=== PATIENT | male | born 1970 | race Caucasian/White ===

== ENCOUNTER 2017-03-03 21:16 | Observation (INO) | payer OTHER ==
[2017-03-03] MEDS ORDERED: NS 0.9% 1000 ML* 1,000 ML IV ONE (22:39)
[2017-03-03 23:28] LABS: Hematocrit 44 % (42-52); Hemoglobin 14.9 g/dl (14.0-18.0); Mean Corpuscular HGB Conc 34 g/dl (31-36); Mean Corpuscular Hemoglobin 34 pg (27-31); Mean Corpuscular Volume 101 fL (80-94); Mean Platelet Volume 7 um3 (7.4-10.4); Red Blood Count 4.37 10^6/ul (4.0-5.4); Red Cell Distribution Width 13 % (10.5-15)
[2017-03-03 23:44] LABS: ALT 32 U/L (7-52); AST 15 U/L (13-39); Albumin 4.3 g/dL (3.2-5.2); Alkaline Phosphatase 20 U/L (34-104); Anion Gap 10 mmol/L (2-11); BUN/Creatinine Ratio 17.7 (8-20); Blood Urea Nitrogen 17 mg/dL (6-24); C Reactive Protein 13.37 mg/L (< 5.00); CO2 Carbon Dioxide 24 mmol/L (22-32); Calcium 9.8 mg/dL (8.6-10.3); Chloride 100 mmol/L (101-111); EGFR African American 107.1 (>60); EGFR Non-African American 83.3 (>60); Globulin 2.2 g/dL (2-4); Glucose 130 mg/dL (70-100); Lipase < 10 U/L (11.0-82.0); Magnesium 1.8 mg/dL (1.9-2.7); Potassium 3.8 mmol/L (3.5-5.0); Sodium 134 mmol/L (133-145); Total Protein 6.5 g/dL (6.4-8.9)
[2017-03-03] MEDS ORDERED: Iohexol 300* (CONTRAST) 10 ML SDV IV ONE (23:54)
[2017-03-04 01:15] LABS: Urine Bilirubin Negative (Negative); Urine Glucose Negative (Negative); Urine Nitrite Negative (Negative)
--- NOTE | 2017-03-04 02:07 | ED ---
Shanda Post Salem, scribed for Titus Martinez MD on 03/03/17 at 2259 . Abdominal Pain/Male - HPI Summary HPI Summary: Patient is a 47 y/o M who presents to the ED with right-sided abdominal pain since 0. He states that pain radiates into right flank. Pt reports nausea and intermittent chills throughout the day. He also reports taking Ibuprofen and ASA for symptoms with little alleviation. He denies a hx of similar sx. - History of Current Complaint Chief Complaint: EDAbdPain Stated Complaint: ABD PAIN Time Seen by Provider: 03/03/17 22:35 Hx Obtained From: Patient, Family/Traffic Worker Onset/Duration: Gradual Onset, Lasting Hours, Still Present Timing: Constant, Lasting Days Severity Initially: Moderate Severity Currently: Moderate Pain Intensity: 8 Pain Scale Used: 0-10 Numeric Location: Discrete At: RUQ, Discrete At: RLQ Radiates: Yes Radiates to: Flank - Right. Aggravating Factor(s): Nothing Alleviating Factor(s): Nothing Associated Signs And Symptoms: Positive: Nausea, Other - Chills. - Allergies/Home Medications Allergies/Adverse Reactions: Allergies Allergy/AdvReac Type Severity Reaction Status Date / Time No Known Allergies Allergy Verified 03/03/17 21:21 PMH/Surg Hx/FS Hx/Imm Hx Previously Healthy: Yes - Surgical History Surgery Procedure, Year, and Place: None. Infectious Disease History: Denies: Traveled Outside the [place] in Last 30 Days - Family History Known Family History: Positive: Cardiac Disease, Respiratory Disease - COPD. - Social History Lives: With Family Review of Systems Positive: Chills Positive: Abdominal Pain, Nausea All Other Systems Reviewed And Are Negative: Yes Physical Exam Triage Information Reviewed: Yes Vital Signs On Initial Exam: Initial Vitals Temp Pulse Resp BP Pulse Ox 97.2 F 59 16 175/80 96 03/03/17 21:19 03/03/17 21:19 03/03/17 21:19 03/03/17 21:19 03/03/17 21:19 Vital Signs Reviewed: Yes Appearance: Positive: Well-Appearing, Pain Distress - moderate discomfort Skin: Positive: Warm Head/Face: Positive: Normal Head/Face Inspection Eyes: Positive: HIRO ENT: Positive: Hearing grossly normal Neck: Positive: Supple Respiratory/Lung Sounds: Positive: Breath Sounds Present Cardiovascular: Positive: Normal, RRR Abdomen Description: Positive: Soft, Guarding, McBurney's Point Tenderness Bowel Sounds: Positive: Present Musculoskeletal: Positive: Strength/ROM Intact Neurological: Positive: Alert, Oriented to Person Place, Time Diagnostics - Vital Signs Vital Signs Temp Pulse Resp BP Pulse Ox 03/03/17 21:19 97.2 F 59 16 175/80 96 - Laboratory Lab Results: Lab Results 03/03/17 03/03/17 03/03/17 Range/Units 23:19 23:19 23:19 WBC 19.0 H (3.5-10.8) 10^3/ul RBC 4.37 (4.0-5.4) 10^6/ul Hgb 14.9 (14.0-18.0) g/dl Hct 44 (42-52) % MCV 101 H (80-94) fL MCH 34 H (27-31) pg MCHC 34 (31-36) g/dl RDW 13 (10.5-15) % Plt Count 172 (150-450) 10^3/ul MPV 7 L (7.4-10.4) um3 Neut % (Auto) 90.6 H (38-83) % Lymph % (Auto) 4.4 L (25-47) % Potter % (Auto) 4.8 (1-9) % Eos % (Auto) 0 (0-6) % Baso % (Auto) 0.2 (0-2) % Absolute Neuts (auto) 17.2 H (1.5-7.7) 10^3/ul Absolute Lymphs (auto) 0.8 L (1.0-4.8) 10^3/ul Absolute Monos (auto) 0.9 H (0-0.8) 10^3/ul Absolute Eos (auto) 0 (0-0.6) 10^3/ul Absolute Basos (auto) 0 (0-0.2) 10^3/ul Absolute Nucleated RBC 0.02 10^3/ul Nucleated RBC % 0.1 Sodium 134 (133-145) mmol/L Potassium 3.8 (3.5-5.0) mmol/L Chloride 100 L (101-111) mmol/L Carbon Dioxide 24 (22-32) mmol/L Anion Gap 10 (2-11) mmol/L BUN 17 (6-24) mg/dL Creatinine 0.96 (0.67-1.17) mg/dL Est GFR ( Amer) 107.1 (>60) Est GFR (Non-Af Amer) 83.3 (>60) BUN/Creatinine Ratio 17.7 (8-20) Glucose 130 H (70-100) mg/dL Lactic Acid 3.0 H* (0.5-2.0) mmol/L Calcium 9.8 (8.6-10.3) mg/dL Magnesium 1.8 L (1.9-2.7) mg/dL Total Bilirubin 0.70 (0.2-1.0) mg/dL AST 15 (13-39) U/L ALT 32 (7-52) U/L Alkaline Phosphatase 20 L (34-104) U/L C-Reactive Protein 13.37 H (< 5.00) mg/L Total Protein 6.5 (6.4-8.9) g/dL Albumin 4.3 (3.2-5.2) g/dL Globulin 2.2 (2-4) g/dL Albumin/Globulin Ratio 2.0 (1-3) Lipase < 10 L (11.0-82.0) U/L Urine Color Urine Appearance Urine pH (5-9) Ur Specific [place] (1.010-1.030) Urine Protein (Negative) Urine Ketones (Negative) Urine Blood (Negative) Urine Nitrate (Negative) Urine Bilirubin (Negative) Urine Urobilinogen (Negative) Ur Leukocyte Esterase (Negative) Urine Glucose (Negative) 03/04/17 Range/Units 00:08 WBC (3.5-10.8) 10^3/ul RBC (4.0-5.4) 10^6/ul Hgb (14.0-18.0) g/dl Hct (42-52) % MCV (80-94) fL MCH (27-31) pg MCHC (31-36) g/dl RDW (10.5-15) % Plt Count (150-450) 10^3/ul MPV (7.4-10.4) um3 Neut % (Auto) (38-83) % Lymph % (Auto) (25-47) % Potter % (Auto) (1-9) % Eos % (Auto) (0-6) % Baso % (Auto) (0-2) % Absolute Neuts (auto) (1.5-7.7) 10^3/ul Absolute Lymphs (auto) (1.0-4.8) 10^3/ul Absolute Monos (auto) (0-0.8) 10^3/ul Absolute Eos (auto) (0-0.6) 10^3/ul Absolute Basos (auto) (0-0.2) 10^3/ul Absolute Nucleated RBC 10^3/ul Nucleated RBC % Sodium (133-145) mmol/L Potassium (3.5-5.0) mmol/L Chloride (101-111) mmol/L Carbon Dioxide (22-32) mmol/L Anion Gap (2-11) mmol/L BUN (6-24) mg/dL Creatinine (0.67-1.17) mg/dL Est GFR ( Amer) (>60) Est GFR (Non-Af Amer) (>60) BUN/Creatinine Ratio (8-20) Glucose (70-100) mg/dL Lactic Acid (0.5-2.0) mmol/L Calcium (8.6-10.3) mg/dL Magnesium (1.9-2.7) mg/dL Total Bilirubin (0.2-1.0) mg/dL AST (13-39) U/L ALT (7-52) U/L Alkaline Phosphatase (34-104) U/L C-Reactive Protein (< 5.00) mg/L Total Protein (6.4-8.9) g/dL Albumin (3.2-5.2) g/dL Globulin (2-4) g/dL Albumin/Globulin Ratio (1-3) Lipase (11.0-82.0) U/L Urine Color Yellow Urine Appearance Turbid Urine pH 5.0 (5-9) Ur Specific [place] 1.030 (1.010-1.030) Urine Protein Negative (Negative) Urine Ketones Negative (Negative) Urine Blood Negative (Negative) Urine Nitrate Negative (Negative) Urine Bilirubin Negative (Negative) Urine Urobilinogen Negative (Negative) Ur Leukocyte Esterase Negative (Negative) Urine Glucose Negative (Negative) Result Diagrams: 03/03/17 23:19 03/03/17 23:19 Diagnostic Studies Comment: Lactic acid: 3.0 Lab Statement: Any lab studies that have been ordered have been reviewed, and results considered in the medical decision making process. - CT Abd/pelvis CT Interpretation Completed By: Radiologist - Impression: Acute appendicitis. Abdominal Pain Fem Course/Dx - Course Course Of Treatment: 47 y/o M presents with right-sided abdominal pain that radiates into right flank since 0. He reports nausea and intermittent chills throughout the day. He also reports taking Ibuprofen and ASA for symptoms with little alleviation. Pt received fluids in ED course. CT shows, per radiology, Impression: Acute appendicitis. Discussed case with Dr. Love. Pt will be admitted. - Diagnoses Provider Diagnoses: Acute appendicitis - Provider Notifications Discussed Care Of Patient With: Asim Love Time Discussed With Above Provider: 01:33 Instructed by Provider To: Admit As Inpatient Admit/Transition Orders Completed By ED Provider: Yes Discharge - Discharge Plan Condition: Fair Disposition: ADMITTED TO [facility] The documentation as recorded by the Shanda valenzuela Salem accurately reflects the service I personally performed and the decisions made by me, Titus Martinez MD.
[2017-03-04] MEDS ORDERED: Metoclopramide IV* 5 MG/ML 2 ML VIAL IV PRN (04:16)
[2017-03-04] MEDS ORDERED: Zosyn per Pharmacy* NOTE FOLLOW UP PRN (04:17)
[2017-03-04] MEDS ORDERED: Morphine INJ* 2 MG/ML 1 ML SYRINGE IV PRN (04:18)
[2017-03-04] MEDS ORDERED: NS 0.9% 1000 ML* 1,000 ML IV SCH (04:30)
[2017-03-04] MEDS ORDERED: Zosyn 3.375 gm X 1 dose, then dose per Pharmacy IVPB ONE ×2 (05:00)
--- NOTE | 2017-03-04 08:03 | RAD ---
CLINICAL HISTORY: Lower abdominal pain COMPARISON: None TECHNIQUE: Multiple contiguous axial CT scans were obtained of the abdomen and pelvis after the administration of intravenous contrast. Coronal and sagittal multiplanar reformations are submitted for review. Oral contrast was administered. Delayed images were obtained through the abdomen and pelvis. FINDINGS: LUNG BASES: The lung bases are clear. LIVER: The liver is diffusely low in attenuation compared to the spleen. There are no focal hepatic parenchymal masses. BILE DUCTS: There is no intrahepatic or extrahepatic biliary dilatation. GALLBLADDER: The gallbladder is normal, without pericholecystic inflammatory change. PANCREAS: The pancreas is normal, without mass or ductal dilatation. SPLEEN: Normal in size and appearance. UPPER GI TRACT: Evaluation of the gastrointestinal tract is limited by incomplete gastric distention. The upper GI tract is unremarkable. SMALL BOWEL AND MESENTERY: The small bowel is normal in contour, course, and caliber. There is no obstruction or dilatation. Incidentally noted is a small enteroenteric intussusception best seen on axial image 81. This does not persist on delayed images and is likely an artifact of peristalsis. Similarly, there is a small area of intussusception that does not persist seen on axial image 96. COLON: There is a tubular, vermiform, hollow viscus that is blind-ending and originates from the cecum. This is dilated measuring up to 1 cm in caliber with stranding of the adjacent fat and a small amount of fluid tracking along the right lateroconal fascia. The appearance is consistent with acute appendicitis. There is no loculated fluid collection to suggest abscess. There is minimal mucosal thickening of the cecum at the base of the appendix, likely reactive. ADRENALS: Normal bilaterally. KIDNEYS: The kidneys are normal in shape, size, contour, and axis. There is no hydronephrosis or nephrolithiasis. BLADDER: The bladder is smooth in contour. PELVIC ORGANS: The prostate gland is normal. The seminal vesicles are symmetric. AORTA: The aorta is normal. IVC: Unremarkable LYMPH NODES: There is no lymphadenopathy by size criteria. ABDOMINAL WALL: There is no evidence for abdominal wall hernia. BONES AND SOFT TISSUES: There are mild diffuse degenerative changes. OTHER: None IMPRESSION: ACUTE APPENDICITIS, WITHOUT LOCULATED FLUID COLLECTION TO SUGGEST ABSCESS. FATTY LIVER.
[2017-03-04] MEDS ORDERED: ZOSYN 3.375 GM Q8H per EXTENDED INFUSION IVPB SCH ×2 (09:00)
--- NOTE | 2017-03-04 10:25 | HP ---
CC: Dr. Miguel Magana DATE OF ADMISSION: 03/04/2017. ATTENDING SURGEON: Dr. Titus Herrera (JUVENAL Hoover dictating). CHIEF COMPLAINT: Abdominal pain. HISTORY OF PRESENT ILLNESS: This is a 47-year-old, generally healthy male who first felt some upper abdominal discomfort the morning of 03/03/2017. He felt hungry, but also had some hot and cold sen sations. He was able to eat, but later in the day nausea was more prominent and he had a small amou nt of vomiting. He is not anorexic at the present time. Pain eventually moved to the right lower q uadrant where it has remained since and has increased in severity to the point where he is asking fo r pain medication. He has not had any previous similar episodes. His last bowel movement was here in the ED following the oral contrast. He states it was loose. There had been no blood per rectum. He has not had any suspect food ingestion and no sick contacts. No previous abdominal surgeries. PAST MEDICAL HISTORY: Unremarkable for any active or significant past medical problems. He specifi tamara denies history of cardiovascular disease, respiratory problems. PAST SURGICAL HISTORY: His only previous surgery is a vasectomy. CURRENT MEDICATIONS: None. DRUG ALLERGIES: None. FAMILY HISTORY: Negative for anesthesia problems, bleeding or clotting disorders. SOCIAL HISTORY: The patient is . He has four children. 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 He is a smoker of one-third pack per day for the past 35 years. He is encouraged to quit. He drinks between four and five drinks per week. He denies other recreational drug use. REVIEW OF SYSTEMS: General: No recent constitutional symptoms or acute illnesses, other than descr ibed in the HPI. His weight has been stable. Cardiovascular: No chest pain or palpitations, histo ry of hypertension or heart murmur. Respiratory: No history of chronic cough or shortness of breath . GI: As above per HPI. No lower GI symptoms. : No problems reported. No dysuria. Endocrine : No diabetes or thyroid dysfunction. PHYSICAL EXAMINATION GENERAL: Well-nourished, well-developed male in no acute distress. He appears mildly uncomfortable . SKIN: Warm and dry. No suspicious rashes or lesions. VITAL SIGNS: Height 5'10", weight 200 pounds. Other vital signs per nursing. HEENT: Pupils equal and round, reactive. EOM's intact. No conjunctival pallor or scleral icterus. Oropharynx: Teeth in good repair. No intraoral lesions. NECK: No lymphadenopathy, thyromegaly or masses. LUNGS: Clear to auscultation. No wheezes. HEART: Regular rate and rhythm. No murmur noted. ABDOMEN: Mild distention per patient. Bowel sounds are present and normoactive. Abdomen is soft th ough with some voluntary guarding. There is some firmness and involuntary guarding of the right low er quadrant with there is maximum tenderness to palpation. No other palpable masses or organomegaly . No palpable inguinal hernias, though there is some weakness with positive cough impulse per the r ight groin. BACK: No spinous process or CVA tenderness. EXTREMITIES: No edema. GENITALIA: Exam otherwise not examined. RECTAL: Exam otherwise not examined. NEUROLOGICAL: Grossly intact. LABORATORY DATA: Laboratory of note: White blood cell 19,000 with left shift, hemoglobin 14.9. C hemistries essentially normal with the exception of lactic acid of 3 and CRP of 13.4. LFT and lipas e are normal. CT scan of the abdomen and pelvis with oral and IV contrast was reviewed with indications of inflamm atory changes around dilated tubular structure consistent with acute appendicitis. There is no evid ence of abscess. IMPRESSION: Acute appendicitis. PLAN: Laparoscopic appendectomy. The patient will be seen and examined for confirmation with Dr. Billy fisher. JUVENAL MENDOZA [id number]/[facility] #: [id number]
[2017-03-04] MEDS ORDERED: Ketorolac INJ* 30 MG/ML 1 ML VIAL ONE (11:50)
[2017-03-04] MEDS ORDERED: Midazolam* 1 MG/ML 5 ML VIAL (5 MG) ONE (11:50)
[2017-03-04] MEDS ORDERED: Atracurium* 10 MG/ML 10 ML VIAL ONE (11:50)
[2017-03-04] MEDS ORDERED: fentaNYL* 50 MCG/ML 5 ML VIAL (250 MCG VIAL) ONE (11:50)
[2017-03-04] MEDS ORDERED: Propofol* 10 MG/ML 20 ML BTL IV PUSH ONE ×2 (11:50→13:19)
[2017-03-04] MEDS ORDERED: Ondansetron INJ* 2 MG/ML VIAL ONE (11:50)
[2017-03-04] MEDS ORDERED: Lidocaine 2% PF * 5 ML VIAL ONE (11:50)
[2017-03-04] MEDS ORDERED: Dexamethasone IV* 4 MG/ML 1 ML (4 MG) ONE (11:50)
[2017-03-04] MEDS ORDERED: ceFOXitin 2 GM IVPREMIX* 2 GM/50 ML BAG IVPB ONE (12:09)
[2017-03-04] MEDS ORDERED: ceFOXitin 2 GM IVPREMIX* 2 GM/50 ML BAG ONE (12:18)
[2017-03-04] MEDS ORDERED: Bupivacaine 0.25% EPI 200,000* 30 ML SDV ONE (12:29)
[2017-03-04] MEDS ORDERED: HYDROmorphone* 1 MG/ML 1 ML SYR IV PRN (13:00)
[2017-03-04] MEDS ORDERED: fentaNYL* 50 MCG/ML 2 ML VIAL (100 MCG VIAL) IV PRN (13:00)
[2017-03-04] MEDS ORDERED: Ondansetron INJ* 2 MG/ML VIAL IV PRN (13:00)
[2017-03-04] MEDS ORDERED: oxyCODONE/Acetamin 5/325 MG* TAB PO PRN (13:00)
[2017-03-04 15:19] VITALS: BP 129/82
--- NOTE | 2017-03-05 06:42 | OP ---
CC: Dr. Magana * OPERATIVE REPORT: DATE OF OPERATION: 03/04/17 - ROOM #335 DATE OF : 66 SURGEON: Titus Herrera MD COKE INSPECTOR: None. ANESTHESIOLOGIST: Dr. Stephon June. ANESTHESIA: General anesthetic, local infiltration. PRE-OP DIAGNOSIS: Acute appendicitis. POST-OP DIAGNOSIS: Acute appendicitis. OPERATIVE PROCEDURE: Laparoscopic appendectomy. DESCRIPTION OF PROCEDURE: The patient was supine on the operative table. After adequate general anesthetic, compression stockings, Param Hugger warmer, and intravenous antibiotics, the abdomen was prepped with antiseptic, draped in a sterile fashion. Local infiltrative anesthesia was administered. Small umbilical incision was created. Blunt port cannula was placed. Insufflation was carried out with carbon dioxide. Additional cannulae left lower quadrant and left mid abdomen were placed through small stab wounds under direct vision. Ultimately, a left infraumbilical incision was also created. The bowel was somewhat dilated, somewhat making the exposure a little more difficult. The patient was tilted well to the left side to help ease the exposure. The appendix was stuck in the retrocecal position, it was suppurative, but there was no perforation, no purulence, no abscess. The additional cannula site was to help exposure to the retroperitoneal side and the appendix was lifted upward. It was a short, thick, edematous mesentery and this was divided with the LigaSure device. The base of the appendix was divided using an EndoGIA stapler bennett cartridge. Appendix was placed in a retrieval bag and brought out through the umbilical site. The operative peter were irrigated with warm saline solution. Free fluid was suctioned out. Hemostasis was confirmed, and again there was no abscess or drainable collection. Cannulae were removed. Pneumoperitoneum allowed to escape. Umbilical fascia was closed with 0 Polysorb , skin with 5-0 Polysorb followed by Steri-Strips. He tolerated the procedure well, was awakened and brought to Recovery in good condition. There were no complications. No drains. Pathologic specimen was appendix. Sponge and instrument counts correct. Estimated blood loss 30 to 50 mL. [id number]/[facility] #: [id number] MTDD
== END 2017-03-04 15:21 | disposition home or self-care (01) ==
LOC: ED 21:16 → SSU 03-04 01:40 → INTOOBSV 03-04 01:40
PROVIDERS: ADMIT Surgery; ATTEND Surgery
PROC: 0DTJ4ZZ Resection of Appendix, Percutaneous Endoscopic Approach (ICD-10-PCS; principal; 2017-03-04 12:15)
DX: K35.80 Unspecified acute appendicitis (principal)
CPT/HCPCS: 36415; 74177; 80053; 81003; 83605; 83690; 83735; 85025; 86140; 88304; 96374; 96375; 99283; G0378; J0694; J1100; J1885; J2250; J2270; J2405; J2543; J2704; J3010; Q9967